=== PATIENT | male | born 1995 ===

== ENCOUNTER 2016-10-27 23:41 | Emergency (ER) | payer SELFPAY ==
[~2016-10-27] VITALS: Ht 172.7 cm; Wt 87.0 kg
[2016-10-27 23:45] VITALS: BP 139/85; PULSE 63; RESP 18; TEMP 97.9; O2SAT 96
== END 2016-10-28 03:12 | disposition left against medical advice (07) ==
LOC: NED 23:41
DX: Z53.21 Procedure and treatment not carried out due to patient leaving prior to being seen by health care provider (principal)
CPT/HCPCS: 99281